=== PATIENT | male | born 1985 | race Caucasian/White ===

== ENCOUNTER 2017-01-19 14:35 | Emergency (ER) | payer OTHER ==
[~2017-01-19] VITALS: Ht 175.3 cm; Wt 93.0 kg
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
== END 2017-01-19 17:54 ==
LOC: ERH 14:35
DX: S16.1XXA Strain of muscle, fascia and tendon at neck level, initial encounter (principal); S06.0X9A Concussion with loss of consciousness of unspecified duration, initial encounter; V47.0XXA Car driver injured in collision with fixed or stationary object in nontraffic accident, initial encounter; Y92.488 Other paved roadways as the place of occurrence of the external cause